=== PATIENT | female | born 1980 | race Caucasian/White ===

== ENCOUNTER 2020-01-02 00:15 | Observation (INO) | payer BC, OTHER ==
[2020-01-02] MEDS ORDERED: Sodium Chloride 0.9% 1000 ML 1,000 ML IV STA ×2 (00:32→01:40)
[2020-01-02] MEDS ORDERED: Phenergan 25 MG INJ IM ONE (00:32)
--- NOTE | 2020-01-02 00:50 | ERPHSYRPT ---
- History of Present Illness Time Seen by Provider: 01/02/20 00:45 Historian: patient, family Exam Limitations: no limitations Physician History: pt had acute onset of abd [pain right side and vomiting with diarrhea at 7 pm this evening - no trauma, no prior episodes - has had GB out; no one else at home reported sick; no travels; ate a [employer] supper earlier; abd is tender at the right mid abd prior hx of C dif , but that was years ago , and has hx of some chronic diarrhea unknown cause but neg w/u; Timing/Duration: today Activities at Onset: none Quality: cramping, sharpness, stabbing Abdominal Pain Onset Location: RUQ, RLQ Pain Radiation: RUQ, RLQ Severity of Pain-Max: moderate Severity of Pain-Current: moderate Associated Symptoms: diarrhea, nausea, vomiting Previous symptoms: no prior history Allergies/Adverse Reactions: cisatracurium besylate [From Nimbex] Allergy (Verified 01/02/20 05:28) ondansetron HCl [From Zofran (as hydrochloride)] Allergy (Verified 01/02/20 05: 28) prochlorperazine edisylate [From Compazine] Allergy (Verified 01/02/20 05:28) prochlorperazine maleate [From Compazine] Allergy (Verified 01/02/20 05:28) Sulfa (Sulfonamide Antibiotics) Allergy (Verified 01/02/20 05:28) IV dye Allergy (Uncoded 02/24/15 11:36) Home Medications: Budesonide [Pulmicort] 1 puff IH BID 02/24/15 [History] Metoprolol Succinate 50 mg [Toprol Xl 50 MG] 50 mg PO DAILY 02/24/15 [ History] Cholecalciferol (Vitamin D3) [Vitamin D3] 5,000 unit PO DAILY 01/02/20 [History] Cranberry Conc/C/Bacill Coag [Azo Cranberry Tablet] 2 each PO DAILY 01/02/20 [ History] Dexlansoprazole [Dexilant] 60 mg PO DAILY 01/02/20 [History] Famotidine 20 mg [Pepcid 20 MG] 20 mg PO DAILY 01/02/20 [History] Metoprolol Succinate 25 mg PO HS 01/02/20 [History] Multivitamin [Multivitamins] 1 each PO DAILY 01/02/20 [History] Saccharomyces Boulardii [Florastor] 250 mg PO BID 01/02/20 [History] Hx Tetanus, Diphtheria Vaccination/Date Given: No Hx Influenza Vaccination/Date Given: Yes - Review of Systems Constitutional: No Fever, No Chills Eyes: No Symptoms Ears, Nose, & Throat: No Symptoms Respiratory: No Cough, No Dyspnea Cardiac: No Chest Pain, No Edema, No Syncope Abdominal/Gastrointestinal: Abdominal Pain, Nausea, Vomiting, Diarrhea Genitourinary Symptoms: No Dysuria Musculoskeletal: No Back Pain, No Neck Pain Skin: No Rash Neurological: No Dizziness, No Focal Weakness, No Sensory Changes Psychological: No Symptoms Endocrine: No Symptoms All Other Systems: Reviewed and Negative - Past Medical History Pertinent Past Medical History: Yes Neurological History: No Pertinent History ENT History: No Pertinent History Cardiac History: Other Respiratory History: Asthma Endocrine Medical History: Hypoglycemia Musculoskeletal History: No Pertinent History GI Medical History: No Pertinent History History: Other Psycho-Social History: No Pertinent History Female Reproductive Disorders: Endometriosis Other Medical History: heart palpitations, hormonal imbalance. - Past Surgical History Past Surgical History: Yes Neuro Surgical History: No Pertinent History Cardiac: No Pertinent History Respiratory: No Pertinent History Gastrointestinal: Cholecystectomy Musculoskeletal: Other Female Surgical History: Section Other Surgical History: scopes x2-endometriosis - Social History Smoking Status: Never smoker Exposure to second hand smoke: No Drug Use: none Patient Lives Alone: No - Female History Hx Now: (hcg pending) - Nursing Vital Signs Nursing Vital Signs: Initial Vital Signs Temperature 97.8 F 01/02/20 00:36 Pulse Rate 104 H 01/02/20 00:36 Respiratory Rate 16 01/02/20 00:36 Blood Pressure 146/92 01/02/20 00:36 O2 Sat by Pulse Oximetry 104 H 01/02/20 00:36 Pain Scale Pain Intensity 2 - Physical Exam General Appearance: no apparent distress, alert Eye Exam: PERRL/EOMI, eyes nml inspection Ears, Nose, Throat Exam: normal ENT inspection, pharynx normal, moist mucous membranes Neck Exam: normal inspection, non-tender, supple, full range of motion Respiratory Exam: normal breath sounds, lungs clear, No respiratory distress Cardiovascular Exam: regular rate/rhythm, normal heart sounds Gastrointestinal/Abdomen Exam: soft, tenderness, No mass Pelvic Exam: deferred Rectal Exam: deferred Back Exam: normal inspection, normal range of motion, No CVA tenderness, No vertebral tenderness Extremity Exam: normal inspection, normal range of motion, pelvis stable Neurologic Exam: alert, oriented x 3, cooperative, normal mood/affect, nml cerebellar function, sensation nml, No motor deficits Skin Exam: normal color, warm, dry - Course Nursing assessment & vital signs reviewed: Yes - CT Exams Abdomen/Pelvis CT Interpretation: Tele-radiologist Report, No appendicitis, Other (air fluid levels throughout - no distension or obstruction point noted) Ordered Tests: Active Orders 24 hr Category Date Time Status IV Insertion STAT Care 01/02/20 00:32 Active Pulse Oximetry (ED) STAT Care 01/02/20 00:41 Completed ABDOMEN AND PELVIS W/0 CONTRAS [CT] Stat Exams 01/02/20 00:44 Ordered AMYLASE Stat Lab 01/02/20 01:00 Completed CBC W DIFF Stat Lab 01/02/20 01:00 Completed CMP Stat Lab 01/02/20 01:00 Completed CULTURE,URINE Stat Lab 01/02/20 00:59 Received HCG QUALITATIVE,SERUM Stat Lab 01/02/20 01:00 Completed LIPASE Stat Lab 01/02/20 01:00 Completed Lactic Acid Stat Lab 01/02/20 01:00 Completed UA W/RFX UR CULTURE Stat Lab 01/02/20 00:59 Completed Medication Summary Generic Name Dose Route Start Last Admin Trade Name Freq PRN Reason Stop Dose Admin Acetaminophen 650 mg 01/02/20 05:30 Feverall 650 Mg LA 02/01/20 05:29 Q4H PRN PRN temp greater than 101 Famotidine 20 mg 01/02/20 17:00 Pepcid 20 Mg Vial IV 02/01/20 16:59 Q12H JOSIAH Hydromorphone HCl 0.5 mg 01/02/20 05:26 Dilaudid 2 Mg Injection IV 01/07/20 05:25 Q3H PRN PRN PAIN Lactated Ringer's 1,000 mls @ 200 mls/hr 01/02/20 05:30 Lactated Ringers IV 02/01/20 05:29 .Q5H JOSIAH Promethazine HCl 50 mg 01/02/20 05:28 Phenergan 25 Mg Inj IM 02/01/20 05:27 Q4H PRN PRN NAUSEA Discontinued Medications Generic Name Dose Route Start Last Admin Trade Name Freq PRN Reason Stop Dose Admin Hydromorphone HCl Confirm 01/02/20 03:18 Hydromorphone 1 Mg/Ml Ampule Administered 01/02/20 03:19 Dose 1 mg .ROUTE .STK-MED ONE Sodium Chloride 1,000 mls @ 999 mls/hr 01/02/20 00:32 01/02/20 01:06 Sodium Chloride 0.9% 1000 Ml IV 01/02/20 01:32 999 mls/hr .Q1H1M STA Administration Sodium Chloride Confirm 01/02/20 01:00 Sodium Chloride 0.9% 1000 Ml Administered 01/02/20 01:01 Dose 1,000 mls @ ud .ROUTE .STK-MED ONE Potassium Chloride 20 meq in 100 mls @ 50 mls/hr 01/02/20 01:34 01/02/20 01: 39 Potassium Chloride 20 Meq In Water 100ml IV 01/02/20 03:33 50 mls/hr STAT ONE Administration Potassium Chloride Confirm 01/02/20 01:37 Potassium Chloride 20 Meq In Water 100ml Administered 01/02/20 01:38 Dose 100 mls @ ud IV .STK-MED ONE Sodium Chloride 1,000 mls @ 999 mls/hr 01/02/20 01:40 Sodium Chloride 0.9% 1000 Ml IV 01/02/20 02:40 .Q1H1M STA Sodium Chloride Confirm 01/02/20 02:22 Sodium Chloride 0.9% 1000 Ml Administered 01/02/20 02:23 Dose 1,000 mls @ ud .ROUTE .STK-MED ONE Potassium Bicarbonate 25 meq 01/02/20 01:34 01/02/20 05:19 K-Lyte 25 Meq PO 01/02/20 01:35 Not Given STAT ONE Potassium Bicarbonate Confirm 01/02/20 01:37 K-Lyte 25 Meq Administered 01/02/20 01:38 Dose 25 meq .ROUTE .STK-MED ONE Promethazine HCl 50 mg 01/02/20 00:32 01/02/20 01:06 Phenergan 25 Mg Inj IM 01/02/20 00:33 50 mg STAT ONE Administration Promethazine HCl Confirm 01/02/20 01:00 Phenergan 25 Mg Inj Administered 01/02/20 01:01 Dose 50 mg .ROUTE .STK-MED ONE Lab/Rad Data: Laboratory Result Diagrams 01/02/20 01:00 01/02/20 01:00 Laboratory Results 01/02/20 01/02/20 01/02/20 Range/Units 01:00 01:00 01:00 WBC (4.0-10.5) K/mm3 RBC (4.1-5.4) M/mm3 Hgb (12.0-16.0) gm/dl Hct (35-47) % MCV (78-100) fl MCH (26-32) pg MCHC (32-36) g/dl RDW (11.5-14.0) % Plt Count (150-450) K/mm3 MPV (7.5-11.0) fl Gran % (36.0-66.0) % Eos # (Auto) (0-0.5) Absolute Lymphs (auto) (1.0-4.6) Absolute Monos (auto) (0.0-1.3) Lymphocytes % (24.0-44.0) % Monocytes % (0.0-12.0) % Eosinophils % (0.00-5.0) % Basophils % (0.0-0.4) % Absolute Granulocytes (1.4-6.9) Basophils # (0-0.4) Sodium 138 (137-145) mmol/L Potassium 3.2 L (3.5-5.1) mmol/L Chloride 105 (98-107) mmol/L Carbon Dioxide 25 (22-30) mmol/L Anion Gap 11.1 (5-15) MEQ/L BUN 21 H (7-17) mg/dL Creatinine 0.61 (0.52-1.04) mg/dL Estimated GFR > 60.0 ML/MIN Glucose 124 H (74-106) mg/dL Lactic Acid (0.4-2.0) Calcium 9.5 (8.4-10.2) mg/dL Total Bilirubin 0.70 (0.2-1.3) mg/dL AST 117 H (14-36) U/L ALT 85 H (0-35) U/L Alkaline Phosphatase 54 (38-126) U/L Serum Total Protein 7.8 (6.3-8.2) g/dL Albumin 4.6 (3.5-5.0) g/dL Amylase 74 (30-110) U/L Lipase 177 (23-300) U/L Serum , Qual NEGATIVE (Negative) Urine Color (YELLOW) Urine Appearance (CLEAR) Urine pH (5-6) Ur Specific [place] (1.005-1.025) Urine Protein (Negative) Urine Ketones (NEGATIVE) Urine Blood (0-5) Jaime/ul Urine Nitrite (NEGATIVE) Urine Bilirubin (NEGATIVE) Urine Urobilinogen (0-1) mg/dL Ur Leukocyte Esterase (NEGATIVE) Urine WBC (Auto) (0-5) /HPF Urine RBC (Auto) (0-2) /HPF U Epithel Cells (Auto) (FEW) /HPF Urine Bacteria (Auto) (NEGATIVE) /HPF Urine Mucus (Auto) (NEGATIVE) /HPF Urine Culture Reflexed (NO) Urine Glucose (NEGATIVE) mg/dL Influenza Type A Ag NEGATIVE (NEGATIVE) Influenza Type B Ag NEGATIVE (NEGATIVE) RSV (PCR) NEGATIVE (Negative) 01/02/20 01/02/20 01/02/20 Range/Units 01:00 01:00 00:59 WBC 18.5 H (4.0-10.5) K/mm3 RBC 4.46 (4.1-5.4) M/mm3 Hgb 14.4 (12.0-16.0) gm/dl Hct 43.1 (35-47) % MCV 96.6 (78-100) fl MCH 32.3 H (26-32) pg MCHC 33.4 (32-36) g/dl RDW 13.2 (11.5-14.0) % Plt Count 246 (150-450) K/mm3 MPV 9.4 (7.5-11.0) fl Gran % 88.6 H (36.0-66.0) % Eos # (Auto) 0.06 (0-0.5) Absolute Lymphs (auto) 0.93 L (1.0-4.6) Absolute Monos (auto) 1.09 (0.0-1.3) Lymphocytes % 5.0 L (24.0-44.0) % Monocytes % 5.9 (0.0-12.0) % Eosinophils % 0.3 (0.00-5.0) % Basophils % 0.2 (0.0-0.4) % Absolute Granulocytes 16.40 H (1.4-6.9) Basophils # 0.03 (0-0.4) Sodium (137-145) mmol/L Potassium (3.5-5.1) mmol/L Chloride (98-107) mmol/L Carbon Dioxide (22-30) mmol/L Anion Gap (5-15) MEQ/L BUN (7-17) mg/dL Creatinine (0.52-1.04) mg/dL Estimated GFR ML/MIN Glucose (74-106) mg/dL Lactic Acid 2.2 H (0.4-2.0) Calcium (8.4-10.2) mg/dL Total Bilirubin (0.2-1.3) mg/dL AST (14-36) U/L ALT (0-35) U/L Alkaline Phosphatase (38-126) U/L Serum Total Protein (6.3-8.2) g/dL Albumin (3.5-5.0) g/dL Amylase (30-110) U/L Lipase (23-300) U/L Serum , Qual (Negative) Urine Color [place] (YELLOW) Urine Appearance SLIGHTLY CLOUDY (CLEAR) Urine pH 5.0 (5-6) Ur Specific [place] 1.024 (1.005-1.025) Urine Protein 30 (Negative) Urine Ketones NEGATIVE (NEGATIVE) Urine Blood NEGATIVE (0-5) Jaime/ul Urine Nitrite NEGATIVE (NEGATIVE) Urine Bilirubin NEGATIVE (NEGATIVE) Urine Urobilinogen NEGATIVE (0-1) mg/dL Ur Leukocyte Esterase TRACE (NEGATIVE) Urine WBC (Auto) 3-5 (0-5) /HPF Urine RBC (Auto) 6-10 (0-2) /HPF U Epithel Cells (Auto) RARE (FEW) /HPF Urine Bacteria (Auto) NONE (NEGATIVE) /HPF Urine Mucus (Auto) MODERATE (NEGATIVE) /HPF Urine Culture Reflexed YES (NO) Urine Glucose NEGATIVE (NEGATIVE) mg/dL Influenza Type A Ag (NEGATIVE) Influenza Type B Ag (NEGATIVE) RSV (PCR) (Negative) - Progress Progress: improved, re-examined Progress Note: 01/02/20 05:42 discussed with pt / family and Dr Nito sal covering and all agree best to place the pt in on obs for rehydration latter-day of K and control of vomiting ; Discussed with : Moises Will see patient in: hospital (observation) Counseled pt/family regarding: lab results, diagnosis, need for follow-up, rad results - Departure Departure Disposition: Observation Clinical Impression: Abdominal pain, vomiting, and diarrhea, Hypokalemia, elevated liver function, Hematuria Condition: Good Critical Care Time: No
[2020-01-02 01:00] LABS: BASOPHIL % 0.2 % (0.0-0.4); Basophil (Absolute #) 0.03 (0-0.4); Eosinophil % 0.3 % (0.00-5.0); Eosinophil (Absolute #) 0.06 (0-0.5); Hematocrit 43.1 % (35-47); Hemoglobin 14.4 gm/dl (12.0-16.0); Lymphocyte (Absolute #) 0.93 (1.0-4.6); Mean Cell Volume 96.6 fl (78-100); Mean Corpuscular Hemoglobin 32.3 pg (26-32); Mean Corpuscular Hgb Concent. 33.4 g/dl (32-36); Mean Platelet Volume 9.4 fl (7.5-11.0); Monocyte (Absolute #) 1.09 (0.0-1.3); Monocytes % 5.9 % (0.0-12.0); Neutrophil % 88.6 % (36.0-66.0); Platelet Count 246 K/mm3 (150-450); Red Blood Count 4.46 M/mm3 (4.1-5.4); Red Cell Distribution Width 13.2 % (11.5-14.0); White Blood Count 18.5 K/mm3 (4.0-10.5)
[2020-01-02] MEDS ORDERED: Sodium Chloride 0.9% 1000 ML 1,000 ML ONE ×2 (01:00→02:22)
[2020-01-02] MEDS ORDERED: Phenergan 25 MG INJ ONE (01:00)
[2020-01-02 01:14] LABS: ALBUMIN 4.6 g/dL (3.5-5.0); ALKALINE PHOSPHATASE 54 U/L (38-126); AMYLASE 74 U/L (30-110); ANION GAP 11.1 MEQ/L (5-15); BLOOD UREA NITROGEN 21 mg/dL (7-17); CHLORIDE 105 mmol/L (98-107); Calcium 9.5 mg/dL (8.4-10.2); Carbon Dioxide 25 mmol/L (22-30); Creatinine 1 0.61 mg/dL (0.52-1.04); Glucose 124 mg/dL (74-106); LIPASE 177 U/L (23-300); Potassium 3.2 mmol/L (3.5-5.1); SGOT/AST 117 U/L (14-36); SGPT/ALT 85 U/L (0-35); SODIUM 138 mmol/L (137-145); Total Protein 7.8 g/dL (6.3-8.2)
[2020-01-02 01:34] LABS: Appearance SLIGHTLY CLOUDY (CLEAR); Bilirubin NEGATIVE (NEGATIVE); Blood NEGATIVE Ery/ul (0-5); Epithelial Cells RARE /HPF (FEW); Glucose NEGATIVE (NEGATIVE); Ketones NEGATIVE (NEGATIVE); Leukocyte Esterase TRACE (NEGATIVE); Mucus MODERATE /HPF (NEGATIVE); Nitrite NEGATIVE (NEGATIVE); Protein,Urine Dip 30 (Negative); Specific Gravity 1.024 (1.005-1.025); Urobilinogen NEGATIVE mg/dL (0-1)
[2020-01-02] MEDS ORDERED: POTASSIUM CHLORIDE 20 mEq IN WATER 100ML 20 MEQ/100 ML BAG IV ONE (01:34)
[2020-01-02] MEDS ORDERED: POTASSIUM CHLORIDE 20 mEq IN WATER 100ML 100 ML IV ONE (01:37)
[2020-01-02] MEDS ORDERED: K-LYTE 25 MEQ ONE (01:37)
[2020-01-02] MEDS: K-LYTE 25 MEQ PO ONE ×2 (01:39→05:19)
[2020-01-02 01:43] LABS: INFLUENZA A NEGATIVE (NEGATIVE); INFLUENZA B NEGATIVE (NEGATIVE); RESPIRATORY SYNCTIAL VIRUS NEGATIVE (Negative)
[2020-01-02] MEDS ORDERED: Hydromorphone 1 mg/ml Ampule ONE (03:18)
[2020-01-02] MEDS ORDERED: FEVERALL 650 MG PR PRN (05:30)
[2020-01-02] MEDS ORDERED: Pepcid 20 MG VIAL IV ONE (05:30)
[2020-01-02] MEDS ORDERED: Pepcid 20 MG VIAL IV SCH ×3 (07:00→22:00)
[2020-01-02 08:25] LABS: Appearance CLEAR (CLEAR); Bilirubin NEGATIVE (NEGATIVE); Blood NEGATIVE Ery/ul (0-5); Epithelial Cells RARE /HPF (FEW); Glucose NEGATIVE (NEGATIVE); Ketones NEGATIVE (NEGATIVE); Leukocyte Esterase NEGATIVE (NEGATIVE); Mucus SLIGHT /HPF (NEGATIVE); Nitrite NEGATIVE (NEGATIVE); Protein,Urine Dip NEGATIVE (Negative); RBC 0-2 /HPF (0-2); Specific Gravity 1.018 (1.005-1.025); Urobilinogen NEGATIVE mg/dL (0-1); WBC 0-2 /HPF (0-5)
[2020-01-02 08:57] LABS: Bacteria RARE /HPF (NEGATIVE)
[2020-01-02] MEDS: Lactated Ringers 1,000 ML IV SCH ×3 (09:35→19:45)
[2020-01-02] MEDS: Phenergan 25 MG INJ IM PRN ×3 (09:36→23:38)
--- NOTE | 2020-01-02 09:43 | XRAY ---
Indication: Midabdomen pain, nausea, vomiting, diarrhea. Multiple contiguous axial images obtained through the abdomen and pelvis without contrast as ordered. Comparison: July 27, 2014. Lung bases are clear. Heart is not enlarged. Noncontrasted stomach and bowel loops appear nonobstructed. Small bowel loops and colon are now mildly fluid distended throughout with minimal small bowel wall thickening, ileus versus enterocolitis. Appendix not seen. No free fluid/air. Again previous cholecystectomy. Remaining liver, pancreas, spleen, adrenal glands, kidneys, ureters, bladder, uterus, and aorta appear unremarkable for noncontrast exam. Osseous structures intact. No ventral or inguinal hernias. Impression: New fluid distended small bowel loops and colon with small bowel wall thickening, ileus versus enterocolitis. Comment: Preliminary interpretation was made by [facility]. No critical discrepancy.
[2020-01-02 10:09] LABS: 027 TOX PROD PRESUMPTIVE NEGATIVE (NEGATIVE); TOXIGENIC C. DIFF ORG NEGATIVE (NEGATIVE)
[2020-01-02 10:14] LABS: ALBUMIN 3.4 g/dL (3.5-5.0); ALKALINE PHOSPHATASE 38 U/L (38-126); ANION GAP 8.6 MEQ/L (5-15); BLOOD UREA NITROGEN 15 mg/dL (7-17); CHLORIDE 107 mmol/L (98-107); Calcium 7.8 mg/dL (8.4-10.2); Carbon Dioxide 24 mmol/L (22-30); Creatinine 1 0.45 mg/dL (0.52-1.04); Glucose 105 mg/dL (74-106); Potassium 3.5 mmol/L (3.5-5.1); SGOT/AST 101 U/L (14-36); SGPT/ALT 124 U/L (0-35); SODIUM 137 mmol/L (137-145)
[2020-01-02 10:17] LABS: Absolute Neutrophil Ct (ANC) 11.78 (1.4-6.9); BASOPHIL % 0.1 % (0.0-0.4); Basophil (Absolute #) 0.01 (0-0.4); Eosinophil (Absolute #) 0 (0-0.5); Hematocrit 36.5 % (35-47); Lymphocyte (Absolute #) 0.29 (1.0-4.6); Lymphocytes % 2.3 % (24.0-44.0); Mean Cell Volume 98.1 fl (78-100); Mean Corpuscular Hemoglobin 32.3 pg (26-32); Mean Corpuscular Hgb Concent. 32.9 g/dl (32-36); Mean Platelet Volume 8.7 fl (7.5-11.0); Monocyte (Absolute #) 0.52 (0.0-1.3); Monocytes % 4.1 % (0.0-12.0); Neutrophil % 93.5 % (36.0-66.0); Platelet Count 251 K/mm3 (150-450); Red Blood Count 3.72 M/mm3 (4.1-5.4); Red Cell Distribution Width 13.3 % (11.5-14.0); White Blood Count 12.6 K/mm3 (4.0-10.5)
--- NOTE | 2020-01-02 12:12 | PCM.HP ---
History of Present Illness - Chief Complaint Chief Complaint: Intractable Vomiting for 1 days History of Present Illness: is a 39 year old female.pt had acute onset of abd [pain right side and vomiting with diarrhea at 7 pm this evening - no trauma, no prior episodes - has had GB out; no one else at home reported sick; no travels; ate a amish supper earlier; abd is tender at the right mid abd prior hx of C dif , but that was years ago , and has hx of some chronic diarrhea unknown cause but neg w/u; Timing/Duration: today Activities at Onset: none Quality: cramping, sharpness, stabbing Abdominal Pain Onset Location: RUQ, RLQ Pain Radiation: RUQ, RLQ Severity of Pain-Max: moderate Severity of Pain-Current: moderate Associated Symptoms: diarrhea, nausea, vomiting Previous symptoms: no prior history - Review of Systems Constitutional: No Fever, No Chills Eyes: No Symptoms Ears, Nose, & Throat: No Symptoms Respiratory: No Cough, No Short Of Breath Cardiac: No Chest Pain, No Edema, No Syncope Abdominal/Gastrointestinal: No Abdominal Pain, No Nausea, No Vomiting, No Diarrhea Genitourinary Symptoms: No Dysuria Musculoskeletal: No Back Pain, No Neck Pain Skin: No Rash Neurological: No Dizziness, No Focal Weakness, No Sensory Changes Psychological: No Symptoms Endocrine: No Symptoms Hematologic/Lymphatic: No Symptoms Immunological/Allergic: No Symptoms Medications & Allergies Home Medications: Home Medication List Budesonide [Pulmicort] 1 puff IH BID 02/24/15 [History Confirmed 01/02/20] Metoprolol Succinate 50 mg [Toprol Xl 50 MG] 50 mg PO DAILY 02/24/15 [ History Confirmed 01/02/20] Cholecalciferol (Vitamin D3) [Vitamin D3] 5,000 unit PO DAILY 01/02/20 [History Confirmed 01/02/20] Cranberry Conc/C/Bacill Coag [Azo Cranberry Tablet] 2 each PO DAILY 01/02/20 [ History Confirmed 01/02/20] Dexlansoprazole [Dexilant] 60 mg PO DAILY 01/02/20 [History Confirmed 01/02/20] Famotidine 20 mg [Pepcid 20 MG] 20 mg PO DAILY 01/02/20 [History Confirmed 01/02/20] Metoprolol Succinate 25 mg PO HS 01/02/20 [History Confirmed 01/02/20] Multivitamin [Multivitamins] 1 each PO DAILY 01/02/20 [History Confirmed ] Saccharomyces Boulardii [Florastor] 250 mg PO BID 01/02/20 [History Confirmed ] Allergies/Adverse Reactions: Allergies Allergy/AdvReac Type Severity Reaction Status Date / Time cisatracurium besylate Allergy Verified 01/02/20 05:28 [From Nimbex] ondansetron HCl Allergy Verified 01/02/20 05:28 [From Zofran (as hydrochloride)] prochlorperazine edisylate Allergy Verified 01/02/20 05:28 [From Compazine] prochlorperazine maleate Allergy Verified 01/02/20 05:28 [From Compazine] Sulfa (Sulfonamide Allergy Verified 01/02/20 05:28 Antibiotics) IV dye Allergy Uncoded 02/24/15 11:36 - Past Medical History Past Medical History: Yes Neurological History: No Pertinent History ENT History: No Pertinent History Cardiac History: Other Respiratory History: Asthma Endocrine Medical History: Hypoglycemia Musculoskelatal History: No Pertinent History GI Medical History: No Pertinent History History: Other Pyscho-Social History: No Pertinent History Reproductive Disorders: Endometriosis Comment: heart palpitations, hormonal imbalance. - Female History Are you now?: (hcg pending) - Past Surgical History Past Surgical History: Yes Neuro Surgical History: No Pertinent History Cardiac History: No Pertinent History Respiratory Surgery: No Pertinent History GI Surgical History: Cholecystectomy Musculskeletal Surgical Hx: Other Female Surgical History: Section Other Surgical History: scopes x2-endometriosis - Social History Smoking Status: Never smoker Exposure to second hand smoke: No Alcohol: None Drug Use: none - Physical Exam Vital Signs: Vital Signs - 24 hr Temp Pulse Resp BP Pulse Ox 01/02/20 11:39 98.3 F 97 H 16 102/54 96 01/02/20 08:00 98.4 F 95 H 16 109/55 97 01/02/20 05:13 98.1 F 105 H 18 99/59 97 01/02/20 01:32 98 H 16 115/77 100 01/02/20 01:07 105 H 105/64 100 01/02/20 00:54 98 01/02/20 00:36 97.8 F 104 H 16 146/92 104 H General Appearance: no apparent distress, alert Neurologic Exam: alert, oriented x 3, cooperative, normal mood/affect, nml cerebellar function, nml station & gait, sensation nml, No motor deficits Eye Exam: PERRL/EOMI, eyes nml inspection Ears, Nose, Throat Exam: normal ENT inspection, TMs normal, pharynx normal, moist mucous membranes Neck Exam: normal inspection, non-tender, supple, full range of motion Respiratory Exam: normal breath sounds, lungs clear, No respiratory distress Cardiovascular Exam: regular rate/rhythm, normal heart sounds, normal peripheral pulses Gastrointestinal/Abdomen Exam: soft, normal bowel sounds, No tenderness, No mass Back Exam: normal inspection, normal range of motion, No CVA tenderness, No vertebral tenderness Extremity Exam: normal inspection, normal range of motion, pelvis stable Skin Exam: normal color, warm, dry, No rash Lymphatic Exam: No adenopathy Results - Labs Lab/Micro Results: Lab Results-Last 24 Hours 01/02/20 01/02/20 01/02/20 Range/Units 00:59 01:00 01:00 WBC 18.5 H (4.0-10.5) K/mm3 RBC 4.46 (4.1-5.4) M/mm3 Hgb 14.4 (12.0-16.0) gm/dl Hct 43.1 (35-47) % MCV 96.6 (78-100) fl MCH 32.3 H (26-32) pg MCHC 33.4 (32-36) g/dl RDW 13.2 (11.5-14.0) % Plt Count 246 (150-450) K/mm3 MPV 9.4 (7.5-11.0) fl Gran % 88.6 H (36.0-66.0) % Eos # (Auto) 0.06 (0-0.5) Absolute Lymphs (auto) 0.93 L (1.0-4.6) Absolute Monos (auto) 1.09 (0.0-1.3) Lymphocytes % 5.0 L (24.0-44.0) % Monocytes % 5.9 (0.0-12.0) % Eosinophils % 0.3 (0.00-5.0) % Basophils % 0.2 (0.0-0.4) % Absolute Granulocytes 16.40 H (1.4-6.9) Basophils # 0.03 (0-0.4) Sodium (137-145) mmol/L Potassium (3.5-5.1) mmol/L Chloride (98-107) mmol/L Carbon Dioxide (22-30) mmol/L Anion Gap (5-15) MEQ/L BUN (7-17) mg/dL Creatinine (0.52-1.04) mg/dL Estimated GFR ML/MIN Glucose (74-106) mg/dL Lactic Acid 2.2 H (0.4-2.0) Calcium (8.4-10.2) mg/dL Total Bilirubin (0.2-1.3) mg/dL AST (14-36) U/L ALT (0-35) U/L Alkaline Phosphatase (38-126) U/L Serum Total Protein (6.3-8.2) g/dL Albumin (3.5-5.0) g/dL Amylase (30-110) U/L Lipase (23-300) U/L Serum , Qual (Negative) Urine Color [place] (YELLOW) Urine Appearance SLIGHTLY CLOUDY (CLEAR) Urine pH 5.0 (5-6) Ur Specific [place] 1.024 (1.005-1.025) Urine Protein 30 (Negative) Urine Ketones NEGATIVE (NEGATIVE) Urine Blood NEGATIVE (0-5) Jaime/ul Urine Nitrite NEGATIVE (NEGATIVE) Urine Bilirubin NEGATIVE (NEGATIVE) Urine Urobilinogen NEGATIVE (0-1) mg/dL Ur Leukocyte Esterase TRACE (NEGATIVE) Urine WBC (Auto) 3-5 (0-5) /HPF Urine RBC (Auto) 6-10 (0-2) /HPF U Epithel Cells (Auto) RARE (FEW) /HPF Urine Bacteria (Auto) NONE (NEGATIVE) /HPF Urine Mucus (Auto) MODERATE (NEGATIVE) /HPF Urine Culture Reflexed YES (NO) Urine Glucose NEGATIVE (NEGATIVE) mg/dL C. difficile Screen (NEGATIVE) C.difficile 027-NAP1-B1 (NEGATIVE) Influenza Type A Ag (NEGATIVE) Influenza Type B Ag (NEGATIVE) RSV (PCR) (Negative) 01/02/20 01/02/20 01/02/20 Range/Units 01:00 01:00 01:00 WBC (4.0-10.5) K/mm3 RBC (4.1-5.4) M/mm3 Hgb (12.0-16.0) gm/dl Hct (35-47) % MCV (78-100) fl MCH (26-32) pg MCHC (32-36) g/dl RDW (11.5-14.0) % Plt Count (150-450) K/mm3 MPV (7.5-11.0) fl Gran % (36.0-66.0) % Eos # (Auto) (0-0.5) Absolute Lymphs (auto) (1.0-4.6) Absolute Monos (auto) (0.0-1.3) Lymphocytes % (24.0-44.0) % Monocytes % (0.0-12.0) % Eosinophils % (0.00-5.0) % Basophils % (0.0-0.4) % Absolute Granulocytes (1.4-6.9) Basophils # (0-0.4) Sodium 138 (137-145) mmol/L Potassium 3.2 L (3.5-5.1) mmol/L Chloride 105 (98-107) mmol/L Carbon Dioxide 25 (22-30) mmol/L Anion Gap 11.1 (5-15) MEQ/L BUN 21 H (7-17) mg/dL Creatinine 0.61 (0.52-1.04) mg/dL Estimated GFR > 60.0 ML/MIN Glucose 124 H (74-106) mg/dL Lactic Acid (0.4-2.0) Calcium 9.5 (8.4-10.2) mg/dL Total Bilirubin 0.70 (0.2-1.3) mg/dL AST 117 H (14-36) U/L ALT 85 H (0-35) U/L Alkaline Phosphatase 54 (38-126) U/L Serum Total Protein 7.8 (6.3-8.2) g/dL Albumin 4.6 (3.5-5.0) g/dL Amylase 74 (30-110) U/L Lipase 177 (23-300) U/L Serum , Qual NEGATIVE (Negative) Urine Color (YELLOW) Urine Appearance (CLEAR) Urine pH (5-6) Ur Specific [place] (1.005-1.025) Urine Protein (Negative) Urine Ketones (NEGATIVE) Urine Blood (0-5) Jaime/ul Urine Nitrite (NEGATIVE) Urine Bilirubin (NEGATIVE) Urine Urobilinogen (0-1) mg/dL Ur Leukocyte Esterase (NEGATIVE) Urine WBC (Auto) (0-5) /HPF Urine RBC (Auto) (0-2) /HPF U Epithel Cells (Auto) (FEW) /HPF Urine Bacteria (Auto) (NEGATIVE) /HPF Urine Mucus (Auto) (NEGATIVE) /HPF Urine Culture Reflexed (NO) Urine Glucose (NEGATIVE) mg/dL C. difficile Screen (NEGATIVE) C.difficile 027-NAP1-B1 (NEGATIVE) Influenza Type A Ag NEGATIVE (NEGATIVE) Influenza Type B Ag NEGATIVE (NEGATIVE) RSV (PCR) NEGATIVE (Negative) 01/02/20 01/02/20 01/02/20 Range/Units 04:50 07:50 07:50 WBC (4.0-10.5) K/mm3 RBC (4.1-5.4) M/mm3 Hgb (12.0-16.0) gm/dl Hct (35-47) % MCV (78-100) fl MCH (26-32) pg MCHC (32-36) g/dl RDW (11.5-14.0) % Plt Count (150-450) K/mm3 MPV (7.5-11.0) fl Gran % (36.0-66.0) % Eos # (Auto) (0-0.5) Absolute Lymphs (auto) (1.0-4.6) Absolute Monos (auto) (0.0-1.3) Lymphocytes % (24.0-44.0) % Monocytes % (0.0-12.0) % Eosinophils % (0.00-5.0) % Basophils % (0.0-0.4) % Absolute Granulocytes (1.4-6.9) Basophils # (0-0.4) Sodium (137-145) mmol/L Potassium (3.5-5.1) mmol/L Chloride (98-107) mmol/L Carbon Dioxide (22-30) mmol/L Anion Gap (5-15) MEQ/L BUN (7-17) mg/dL Creatinine (0.52-1.04) mg/dL Estimated GFR ML/MIN Glucose (74-106) mg/dL Lactic Acid 1.6 (0.4-2.0) Calcium (8.4-10.2) mg/dL Total Bilirubin (0.2-1.3) mg/dL AST (14-36) U/L ALT (0-35) U/L Alkaline Phosphatase (38-126) U/L Serum Total Protein (6.3-8.2) g/dL Albumin (3.5-5.0) g/dL Amylase (30-110) U/L Lipase (23-300) U/L Serum , Qual (Negative) Urine Color YELLOW (YELLOW) Urine Appearance CLEAR (CLEAR) Urine pH 7.0 (5-6) Ur Specific [place] 1.018 (1.005-1.025) Urine Protein NEGATIVE (Negative) Urine Ketones NEGATIVE (NEGATIVE) Urine Blood NEGATIVE (0-5) Jaime/ul Urine Nitrite NEGATIVE (NEGATIVE) Urine Bilirubin NEGATIVE (NEGATIVE) Urine Urobilinogen NEGATIVE (0-1) mg/dL Ur Leukocyte Esterase NEGATIVE (NEGATIVE) Urine WBC (Auto) 0-2 (0-5) /HPF Urine RBC (Auto) 0-2 (0-2) /HPF U Epithel Cells (Auto) RARE (FEW) /HPF Urine Bacteria (Auto) RARE (NEGATIVE) /HPF Urine Mucus (Auto) SLIGHT (NEGATIVE) /HPF Urine Culture Reflexed NO (NO) Urine Glucose NEGATIVE (NEGATIVE) mg/dL C. difficile Screen NEGATIVE (NEGATIVE) C.difficile 027-NAP1-B1 PRESUMPTIVE NEGATIVE (NEGATIVE) Influenza Type A Ag (NEGATIVE) Influenza Type B Ag (NEGATIVE) RSV (PCR) (Negative) 01/02/20 01/02/20 Range/Units 10:00 10:00 WBC 12.6 H (4.0-10.5) K/mm3 RBC 3.72 L (4.1-5.4) M/mm3 Hgb 12.0 (12.0-16.0) gm/dl Hct 36.5 (35-47) % MCV 98.1 (78-100) fl MCH 32.3 H (26-32) pg MCHC 32.9 (32-36) g/dl RDW 13.3 (11.5-14.0) % Plt Count 251 (150-450) K/mm3 MPV 8.7 (7.5-11.0) fl Gran % 93.5 H (36.0-66.0) % Eos # (Auto) 0 (0-0.5) Absolute Lymphs (auto) 0.29 L (1.0-4.6) Absolute Monos (auto) 0.52 (0.0-1.3) Lymphocytes % 2.3 L (24.0-44.0) % Monocytes % 4.1 (0.0-12.0) % Eosinophils % 0.0 (0.00-5.0) % Basophils % 0.1 (0.0-0.4) % Absolute Granulocytes 11.78 H (1.4-6.9) Basophils # 0.01 (0-0.4) Sodium 137 (137-145) mmol/L Potassium 3.5 (3.5-5.1) mmol/L Chloride 107 (98-107) mmol/L Carbon Dioxide 24 (22-30) mmol/L Anion Gap 8.6 (5-15) MEQ/L BUN 15 (7-17) mg/dL Creatinine 0.45 L (0.52-1.04) mg/dL Estimated GFR > 60.0 ML/MIN Glucose 105 (74-106) mg/dL Lactic Acid (0.4-2.0) Calcium 7.8 L D (8.4-10.2) mg/dL Total Bilirubin 0.60 (0.2-1.3) mg/dL AST 101 H (14-36) U/L ALT 124 H (0-35) U/L Alkaline Phosphatase 38 (38-126) U/L Serum Total Protein 6.0 L (6.3-8.2) g/dL Albumin 3.4 L (3.5-5.0) g/dL Amylase (30-110) U/L Lipase (23-300) U/L Serum , Qual (Negative) Urine Color (YELLOW) Urine Appearance (CLEAR) Urine pH (5-6) Ur Specific [place] (1.005-1.025) Urine Protein (Negative) Urine Ketones (NEGATIVE) Urine Blood (0-5) Jaime/ul Urine Nitrite (NEGATIVE) Urine Bilirubin (NEGATIVE) Urine Urobilinogen (0-1) mg/dL Ur Leukocyte Esterase (NEGATIVE) Urine WBC (Auto) (0-5) /HPF Urine RBC (Auto) (0-2) /HPF U Epithel Cells (Auto) (FEW) /HPF Urine Bacteria (Auto) (NEGATIVE) /HPF Urine Mucus (Auto) (NEGATIVE) /HPF Urine Culture Reflexed (NO) Urine Glucose (NEGATIVE) mg/dL C. difficile Screen (NEGATIVE) C.difficile 027-NAP1-B1 (NEGATIVE) Influenza Type A Ag (NEGATIVE) Influenza Type B Ag (NEGATIVE) RSV (PCR) (Negative) - Radiology Impressions Radiology Exams & Impressions: Radiology Procedures Category Date Time Status ABDOMEN AND PELVIS W/0 CONTRAS [CT] Stat Exams 01/02/20 00:44 Completed Assessment/Plan (1) Abdominal pain, vomiting, and diarrhea Current Visit: Yes Status: Acute Assessment & Plan: Last Vital Signs Temp 98.3 F 01/02/20 11:39 Pulse 97 H 01/02/20 11:39 Resp 16 01/02/20 11:39 BP 102/54 01/02/20 11:39 Pulse Ox 96 01/02/20 11:39 Allergies cisatracurium besylate [From Nimbex] Allergy (Verified 01/02/20 05:28) ondansetron HCl [From Zofran (as hydrochloride)] Allergy (Verified 01/02/20 05: 28) prochlorperazine edisylate [From Compazine] Allergy (Verified 01/02/20 05:28) prochlorperazine maleate [From Compazine] Allergy (Verified 01/02/20 05:28) Sulfa (Sulfonamide Antibiotics) Allergy (Verified 01/02/20 05:28) IV dye Allergy (Uncoded 02/24/15 11:36) Active Medications Acetaminophen (Feverall 650 Mg) 650 mg IA Q4H PRN PRN PRN Reason: temp greater than 101 Stop: 02/01/20 05:29 Famotidine (Pepcid 20 Mg Vial) 20 mg IV Q12HT JOSIAH Stop: 02/01/20 21:59 Hydromorphone HCl (Dilaudid 2 Mg Injection) 0.5 mg IV Q3H PRN PRN PRN Reason: PAIN Stop: 01/07/20 05:25 Lactated Ringer's (Lactated Ringers) 1,000 mls @ 200 mls/hr IV .Q5H JOSIAH Stop: 02/01/20 05:29 Last Admin: 01/02/20 09:35 Dose: 200 mls/hr Promethazine HCl (Phenergan 25 Mg Inj) 50 mg IM Q4H PRN PRN PRN Reason: NAUSEA Stop: 02/01/20 05:27 Last Admin: 01/02/20 09:36 Dose: 50 mg Intake & Output 01/02/20 01/03/20 11:59 11:59 Intake Total 0 Output Total 425 Balance -425 Weight 67.6 kg Lab Tests 01/02/20 01/02/20 01/02/20 00:59 01:00 01:00 WBC 18.5 H RBC 4.46 Hgb 14.4 Hct 43.1 MCV 96.6 MCH 32.3 H MCHC 33.4 RDW 13.2 Plt Count 246 MPV 9.4 Gran % 88.6 H Eos # (Auto) 0.06 Absolute Lymphs (auto) 0.93 L Absolute Monos (auto) 1.09 Lymphocytes % 5.0 L Monocytes % 5.9 Eosinophils % 0.3 Basophils % 0.2 Absolute Granulocytes 16.40 H Basophils # 0.03 Sodium Potassium Chloride Carbon Dioxide Anion Gap BUN Creatinine Estimated GFR Glucose Lactic Acid 2.2 H Calcium Total Bilirubin AST ALT Alkaline Phosphatase Serum Total Protein Albumin Amylase Lipase Serum , Qual Urine Color [place] Urine Appearance SLIGHTLY CLOUDY Urine pH 5.0 Ur Specific [place] 1.024 Urine Protein 30 Urine Ketones NEGATIVE Urine Blood NEGATIVE Urine Nitrite NEGATIVE Urine Bilirubin NEGATIVE Urine Urobilinogen NEGATIVE Ur Leukocyte Esterase TRACE Urine WBC (Auto) 3-5 Urine RBC (Auto) 6-10 U Epithel Cells (Auto) RARE Urine Bacteria (Auto) NONE Urine Mucus (Auto) MODERATE Urine Culture Reflexed YES Urine Glucose NEGATIVE C. difficile Screen C.difficile 027-NAP1-B1 Influenza Type A Ag Influenza Type B Ag RSV (PCR) 01/02/20 01/02/20 01/02/20 01:00 01:00 01:00 WBC RBC Hgb Hct MCV MCH MCHC RDW Plt Count MPV Gran % Eos # (Auto) Absolute Lymphs (auto) Absolute Monos (auto) Lymphocytes % Monocytes % Eosinophils % Basophils % Absolute Granulocytes Basophils # Sodium 138 Potassium 3.2 L Chloride 105 Carbon Dioxide 25 Anion Gap 11.1 BUN 21 H Creatinine 0.61 Estimated GFR > 60.0 Glucose 124 H Lactic Acid Calcium 9.5 Total Bilirubin 0.70 AST 117 H ALT 85 H Alkaline Phosphatase 54 Serum Total Protein 7.8 Albumin 4.6 Amylase 74 Lipase 177 Serum , Qual NEGATIVE Urine Color Urine Appearance Urine pH Ur Specific [place] Urine Protein Urine Ketones Urine Blood Urine Nitrite Urine Bilirubin Urine Urobilinogen Ur Leukocyte Esterase Urine WBC (Auto) Urine RBC (Auto) U Epithel Cells (Auto) Urine Bacteria (Auto) Urine Mucus (Auto) Urine Culture Reflexed Urine Glucose C. difficile Screen C.difficile 027-NAP1-B1 Influenza Type A Ag NEGATIVE Influenza Type B Ag NEGATIVE RSV (PCR) NEGATIVE 01/02/20 01/02/20 01/02/20 04:50 07:50 07:50 WBC RBC Hgb Hct MCV MCH MCHC RDW Plt Count MPV Gran % Eos # (Auto) Absolute Lymphs (auto) Absolute Monos (auto) Lymphocytes % Monocytes % Eosinophils % Basophils % Absolute Granulocytes Basophils # Sodium Potassium Chloride Carbon Dioxide Anion Gap BUN Creatinine Estimated GFR Glucose Lactic Acid 1.6 Calcium Total Bilirubin AST ALT Alkaline Phosphatase Serum Total Protein Albumin Amylase Lipase Serum , Qual Urine Color YELLOW Urine Appearance CLEAR Urine pH 7.0 Ur Specific [place] 1.018 Urine Protein NEGATIVE Urine Ketones NEGATIVE Urine Blood NEGATIVE Urine Nitrite NEGATIVE Urine Bilirubin NEGATIVE Urine Urobilinogen NEGATIVE Ur Leukocyte Esterase NEGATIVE Urine WBC (Auto) 0-2 Urine RBC (Auto) 0-2 U Epithel Cells (Auto) RARE Urine Bacteria (Auto) RARE Urine Mucus (Auto) SLIGHT Urine Culture Reflexed NO Urine Glucose NEGATIVE C. difficile Screen NEGATIVE C.difficile 027-NAP1-B1 PRESUMPTIVE NEGATIVE Influenza Type A Ag Influenza Type B Ag RSV (PCR) 01/02/20 01/02/20 10:00 10:00 WBC 12.6 H RBC 3.72 L Hgb 12.0 Hct 36.5 MCV 98.1 MCH 32.3 H MCHC 32.9 RDW 13.3 Plt Count 251 MPV 8.7 Gran % 93.5 H Eos # (Auto) 0 Absolute Lymphs (auto) 0.29 L Absolute Monos (auto) 0.52 Lymphocytes % 2.3 L Monocytes % 4.1 Eosinophils % 0.0 Basophils % 0.1 Absolute Granulocytes 11.78 H Basophils # 0.01 Sodium 137 Potassium 3.5 Chloride 107 Carbon Dioxide 24 Anion Gap 8.6 BUN 15 Creatinine 0.45 L Estimated GFR > 60.0 Glucose 105 Lactic Acid Calcium 7.8 L D Total Bilirubin 0.60 AST 101 H ALT 124 H Alkaline Phosphatase 38 Serum Total Protein 6.0 L Albumin 3.4 L Amylase Lipase Serum , Qual Urine Color Urine Appearance Urine pH Ur Specific [place] Urine Protein Urine Ketones Urine Blood Urine Nitrite Urine Bilirubin Urine Urobilinogen Ur Leukocyte Esterase Urine WBC (Auto) Urine RBC (Auto) U Epithel Cells (Auto) Urine Bacteria (Auto) Urine Mucus (Auto) Urine Culture Reflexed Urine Glucose C. difficile Screen C.difficile 027-NAP1-B1 Influenza Type A Ag Influenza Type B Ag RSV (PCR) Code(s): R10.9 - UNSPECIFIED ABDOMINAL PAIN; R11.10 - VOMITING, UNSPECIFIED; R19.7 - DIARRHEA, UNSPECIFIED (2) Hematuria Current Visit: Yes Status: Acute Code(s): R31.9 - HEMATURIA, UNSPECIFIED (3) Hypokalemia Current Visit: Yes Status: Acute Code(s): E87.6 - HYPOKALEMIA
[2020-01-02] MEDS: THERAGRAN MULTIVITAMIN PO SCH (13:26)
[2020-01-02] MEDS: Toprol Xl 50 MG PO SCH (13:26)
[2020-01-02] MEDS: VITAMIN D PO SCH (13:27)
[2020-01-02] MEDS: Protonix 40MG Tablet PO SCH (13:27)
[2020-01-02] MEDS ORDERED: MEDICATION INTERVENTION MC SCH (13:45)
[2020-01-02 14:48] LABS: Slide Review 1 YES
[2020-01-02] MEDS ORDERED: PULMICORT 0.5 MG/2 ML RESPULES IH ONE (16:54)
[2020-01-02] MEDS: PULMICORT 0.5 MG/2 ML RESPULES IH SCH (16:58)
[2020-01-02] MEDS: DILAUDID 2 MG INJECTION IV PRN (19:46)
[2020-01-02] MEDS: Acidophilus TABLET PO SCH (21:20)
[2020-01-02] MEDS ORDERED: NON-FORMULARY ITEM (Metoprolol Succinate 25 MG) PO SCH (22:00)
[2020-01-02] MEDS ORDERED: Lopressor 50 MG PO SCH (22:00)
[2020-01-02] MEDS ORDERED: NON-FORMULARY ITEM (Saccharomyces Boulardii [Florastor] 250 MG) PO SCH (22:00)
[2020-01-02] MEDS: Lomotil PO PRN (23:46)
[2020-01-03] MEDS: Lactated Ringers 1,000 ML IV SCH ×3 (00:52→12:04)
[2020-01-03] MEDS: DILAUDID 2 MG INJECTION IV PRN (04:21)
[2020-01-03 04:55] LABS: BASOPHIL % 0.1 % (0.0-0.4); Basophil (Absolute #) 0.01 (0-0.4); Eosinophil % 0.2 % (0.00-5.0); Eosinophil (Absolute #) 0.02 (0-0.5); Hematocrit 34.5 % (35-47); Hemoglobin 11.4 gm/dl (12.0-16.0); Lymphocyte (Absolute #) 1.04 (1.0-4.6); Lymphocytes % 11.4 % (24.0-44.0); Mean Cell Volume 99.1 fl (78-100); Mean Corpuscular Hemoglobin 32.8 pg (26-32); Mean Platelet Volume 8.7 fl (7.5-11.0); Monocyte (Absolute #) 0.79 (0.0-1.3); Monocytes % 8.6 % (0.0-12.0); Neutrophil % 79.7 % (36.0-66.0); Platelet Count 213 K/mm3 (150-450); Red Blood Count 3.48 M/mm3 (4.1-5.4); Red Cell Distribution Width 13.3 % (11.5-14.0); White Blood Count 9.2 K/mm3 (4.0-10.5)
[2020-01-03 05:09] LABS: ALKALINE PHOSPHATASE 39 U/L (38-126); ANION GAP 7.7 MEQ/L (5-15); BLOOD UREA NITROGEN 7 mg/dL (7-17); CHLORIDE 104 mmol/L (98-107); Calcium 8.1 mg/dL (8.4-10.2); Carbon Dioxide 26 mmol/L (22-30); Creatinine 1 0.53 mg/dL (0.52-1.04); Glucose 77 mg/dL (74-106); Potassium 3.2 mmol/L (3.5-5.1); SGOT/AST 52 U/L (14-36); SGPT/ALT 85 U/L (0-35); SODIUM 135 mmol/L (137-145); Total Protein 5.5 g/dL (6.3-8.2)
[2020-01-03] MEDS: PULMICORT 0.5 MG/2 ML RESPULES IH SCH (06:42)
[2020-01-03] MEDS: Protonix 40MG Tablet PO SCH (08:53)
[2020-01-03] MEDS: VITAMIN D PO SCH (08:53)
[2020-01-03] MEDS: THERAGRAN MULTIVITAMIN PO SCH (08:54)
[2020-01-03] MEDS: Acidophilus TABLET PO SCH (08:54)
[2020-01-03] MEDS: Toprol Xl 50 MG PO SCH (08:54)
[2020-01-03] MEDS ORDERED: NON-FORMULARY ITEM (Cholecalciferol (Vitamin D3) [Vitamin D3] 5,000 UNIT) PO SCH (10:00)
[2020-01-03] MEDS ORDERED: NON-FORMULARY ITEM (Dexlansoprazole [Dexilant] 60 MG) PO SCH (10:00)
[2020-01-03] MEDS ORDERED: [UNRECOGNIZED DRUG - OTHER] PO SCH (10:00)
[2020-01-03] MEDS ORDERED: Pepcid 20 MG PO SCH (10:00)
[2020-01-03] MEDS ORDERED: NON-FORMULARY ITEM (Multivitamin [Multivitamins] 1 EACH) PO SCH (10:00)
--- NOTE | 2020-01-03 10:16 | PCM.DS ---
Discharge Summary Date of Admission: 01/02/20 03:55 Admitting Physician: JULIO CESAR TRIVEDI Primary Care Provider: JULIO CESAR TRIVEDI Allergies Allergies cisatracurium besylate [From Nimbex] Allergy (Verified 01/02/20 05:28) ondansetron HCl [From Zofran (as hydrochloride)] Allergy (Verified 01/02/20 05: 28) prochlorperazine edisylate [From Compazine] Allergy (Verified 01/02/20 05:28) prochlorperazine maleate [From Compazine] Allergy (Verified 01/02/20 05:28) Sulfa (Sulfonamide Antibiotics) Allergy (Verified 01/02/20 05:28) IV dye Allergy (Uncoded 02/24/15 11:36) Hospital Summary - Hospital Course Hospital Course: Last Vital Signs Temp 98.3 F 01/03/20 07:18 Pulse 102 H 01/03/20 07:18 Resp 16 01/03/20 07:18 BP 166/55 01/03/20 07:18 Pulse Ox 94 L 01/03/20 07:18 Allergies cisatracurium besylate [From Nimbex] Allergy (Verified 01/02/20 05:28) ondansetron HCl [From Zofran (as hydrochloride)] Allergy (Verified 01/02/20 05: 28) prochlorperazine edisylate [From Compazine] Allergy (Verified 01/02/20 05:28) prochlorperazine maleate [From Compazine] Allergy (Verified 01/02/20 05:28) Sulfa (Sulfonamide Antibiotics) Allergy (Verified 01/02/20 05:28) IV dye Allergy (Uncoded 02/24/15 11:36) Active Medications Acetaminophen (Feverall 650 Mg) 650 mg NM Q4H PRN PRN PRN Reason: temp greater than 101 Stop: 02/01/20 05:29 Budesonide (Pulmicort 0.5 Mg/2 Ml Respules) 0.5 mg IH BIDRT [facility] Stop: 02/01/20 18:59 Last Admin: 01/03/20 06:42 Dose: 0.5 mg Cholecalciferol (Vitamin D) 5,000 unit PO DAILY [facility] Stop: 02/01/20 12:59 Last Admin: 01/03/20 08:53 Dose: 5,000 unit Diphenoxylate HCl/Atropine (Lomotil) 1 tablet PO QID PRN PRN PRN Reason: DIARRHEA Stop: 02/01/20 13:51 Last Admin: 01/02/20 23:46 Dose: 1 tablet Famotidine (Pepcid 20 Mg) 20 mg PO DAILY [facility] Stop: 02/02/20 09:59 Last Admin: 01/03/20 08:54 Dose: 20 mg Hydromorphone HCl (Dilaudid 2 Mg Injection) 0.5 mg IV Q3H PRN PRN PRN Reason: PAIN Stop: 01/07/20 05:25 Last Admin: 01/03/20 04:21 Dose: 0.5 mg Lactated Ringer's (Lactated Ringers) 1,000 mls @ 200 mls/hr IV .Q5H [facility] Stop: 02/01/20 05:29 Last Admin: 01/03/20 05:39 Dose: 200 mls/hr Lactobacillus Acidophilus (Acidophilus Tablet) 1 tab PO BID [facility] Stop: 02/01/20 21:59 Last Admin: 01/03/20 08:54 Dose: 1 tab Metoprolol Succinate (Toprol Xl 50 Mg) 50 mg PO DAILY [facility] Stop: 02/01/20 12:59 Last Admin: 01/03/20 08:54 Dose: 50 mg Metoprolol Tartrate (Lopressor 50 Mg) 25 mg PO HS [facility] Stop: 02/01/20 21:59 Last Admin: 01/02/20 21:19 Dose: 25 mg Miscellaneous Information (Medication Intervention) 0 each MC .RN TO CHECK WITH PT [facility] Stop: 02/01/20 13:44 Multivitamins Therapeutic (Theragran Multivitamin) 1 tab PO DAILY [facility] Stop: 02/01/20 12:59 Last Admin: 01/03/20 08:54 Dose: 1 tab Pantoprazole Sodium (Protonix 40mg Tablet) 40 mg PO DAILY [facility] Stop: 02/01/20 12:59 Last Admin: 01/03/20 08:53 Dose: 40 mg Promethazine HCl (Phenergan 25 Mg Inj) 50 mg IM Q4H PRN PRN PRN Reason: NAUSEA Stop: 02/01/20 05:27 Last Admin: 01/02/20 23:38 Dose: 50 mg Intake & Output 01/02/20 01/03/20 11:59 11:59 Intake Total 0 5917 Output Total 425 Balance -425 5917 Weight 67.6 kg 67.5 kg Orders 01/02/20 12:39 Discontinue Telemetry ROUTINE 01/02/20 13:00 Cholecalciferol (Vitamin D3) [Vitamin D] 5,000 unit PO DAILY Metoprolol Succinate 50 mg [Toprol Xl 50 MG] 50 mg PO DAILY Multivitamins,Therapeutic Tab* [Theragran Multivitamin] 1 tab PO DAILY PANTOPRAZOLE 40 mg Tablet [Protonix 40MG Tablet] 40 mg PO DAILY 01/02/20 13:45 Medication Intervention 0 each MC .RN TO CHECK WITH PT 01/02/20 13:52 Diphenoxylate HCl/Atropine [Lomotil] 1 tablet PO QID PRN PRN 01/02/20 14:17 Pulse Oximetry .spot check Respiratory Therapy Assessment DAILY 01/02/20 19:00 Budesonide 0.5 mg/2 ml [Pulmicort 0.5 mg/2 ml Respules] 0.5 mg IH BIDRT 01/02/20 22:00 Lactobacillus Acidophilus [Acidophilus TABLET] 1 tab PO BID Metoprolol Tartrate 50 mg [Lopressor 50 MG] 25 mg PO HS 01/03/20 10:00 Famotidine 20 mg [Pepcid 20 MG] 20 mg PO DAILY 01/03/20 Breakfast [place] Diet Lab Tests 01/02/20 01/02/20 01/03/20 10:00 10:00 04:35 WBC 12.6 H 9.2 RBC 3.72 L 3.48 L Hgb 12.0 11.4 L Hct 36.5 34.5 L MCV 98.1 99.1 MCH 32.3 H 32.8 H MCHC 32.9 33.0 RDW 13.3 13.3 Plt Count 251 213 MPV 8.7 8.7 Gran % 93.5 H 79.7 H Eos # (Auto) 0 0.02 Absolute Lymphs (auto) 0.29 L 1.04 Absolute Monos (auto) 0.52 0.79 Lymphocytes % 2.3 L 11.4 L Monocytes % 4.1 8.6 Eosinophils % 0.0 0.2 Basophils % 0.1 0.1 Absolute Granulocytes 11.78 H 7.30 H Basophils # 0.01 0.01 Sodium 137 Potassium 3.5 Chloride 107 Carbon Dioxide 24 Anion Gap 8.6 BUN 15 Creatinine 0.45 L Estimated GFR > 60.0 Glucose 105 Calcium 7.8 L D Total Bilirubin 0.60 AST 101 H ALT 124 H Alkaline Phosphatase 38 Serum Total Protein 6.0 L Albumin 3.4 L Slides for Path Review YES 01/03/20 04:35 WBC RBC Hgb Hct MCV MCH MCHC RDW Plt Count MPV Gran % Eos # (Auto) Absolute Lymphs (auto) Absolute Monos (auto) Lymphocytes % Monocytes % Eosinophils % Basophils % Absolute Granulocytes Basophils # Sodium 135 L Potassium 3.2 L Chloride 104 Carbon Dioxide 26 Anion Gap 7.7 BUN 7 Creatinine 0.53 Estimated GFR > 60.0 Glucose 77 Calcium 8.1 L Total Bilirubin 0.60 AST 52 H ALT 85 H Alkaline Phosphatase 39 Serum Total Protein 5.5 L Albumin 3.0 L Slides for Path Review Microbiology 01/02/20 00:59 Clean Catch Midstream Urine Culture - Preliminary GRAM POSITIVE ID AND SENSITIVITY PENDING Chief Complaint Diagnosis Intractable Vomiting for 1 days Allergies Allergy/AdvReac Type Severity Reaction Status Date / Time cisatracurium besylate Allergy Verified 01/02/20 05:28 [From Nimbex] ondansetron HCl Allergy Verified 01/02/20 05:28 [From Zofran (as hydrochloride)] prochlorperazine edisylate Allergy Verified 01/02/20 05:28 [From Compazine] prochlorperazine maleate Allergy Verified 01/02/20 05:28 [From Compazine] Sulfa (Sulfonamide Allergy Verified 01/02/20 05:28 Antibiotics) IV dye Allergy Uncoded 02/24/15 11:36 Vital Signs (Last 24 hours) Temp Pulse Resp BP Pulse Ox 01/03/20 07:18 98.3 F 102 H 16 166/55 94 L 01/03/20 06:44 102 H 16 94 L 01/03/20 04:20 18 02/18/20 04:00 99 F 101 H 18 105/60 97 01/03/20 00:00 98.7 F 101 H 18 101/54 95 01/02/20 23:50 16 01/02/20 20:00 98.5 F 106 H 16 100/58 96 01/02/20 19:51 16 01/02/20 16:59 104 H 14 94 L 01/02/20 14:18 99 H 16 94 L 01/02/20 11:39 98.3 F 97 H 16 102/54 96 Home Medications Medication Instructions Recorded Confirmed Last Taken Type Cholecalciferol (Vitamin D3) 5,000 unit PO DAILY 01/02/20 01/02/20 01/01/20 History [Vitamin D3] Cranberry Conc/C/Bacill Coag [Azo 2 each PO DAILY 01/02/20 01/02/20 01/01/20 History Cranberry Tablet] Dexlansoprazole [Dexilant] 60 mg PO DAILY 01/02/20 01/02/20 01/01/20 History Famotidine 20 mg [Pepcid 20 20 mg PO DAILY 01/02/20 01/02/20 01/01/20 History MG] Metoprolol Succinate 25 mg PO HS 01/02/20 01/02/20 01/01/20 History Multivitamin [Multivitamins] 1 each PO DAILY 01/02/20 01/02/20 01/01/20 History Saccharomyces Boulardii [Florastor] 250 mg PO BID 01/02/20 01/02/20 01/01/20 History Current Medications Generic Name Dose Route Start Last Admin Trade Name Freq PRN Reason Stop Dose Admin Acetaminophen 650 mg 01/02/20 05:30 Feverall 650 Mg NM 02/01/20 05:29 Q4H PRN PRN temp greater than 101 Budesonide 0.5 mg 01/02/20 19:00 01/03/20 06:42 Pulmicort 0.5 Mg/2 Ml Respules IH 02/01/20 18:59 0.5 mg BIDRT JOSIAH Administration Cholecalciferol 5,000 unit 01/02/20 13:00 01/03/20 08:53 Vitamin D PO 02/01/20 12:59 5,000 unit DAILY JOSIAH Administration Diphenoxylate HCl/Atropine 1 tablet 01/02/20 13:52 01/02/20 23:46 Lomotil PO 02/01/20 13:51 1 tablet QID PRN PRN Administration DIARRHEA Famotidine 20 mg 01/03/20 10:00 01/03/20 08:54 Pepcid 20 Mg PO 02/02/20 09:59 20 mg DAILY JOSIAH Administration Hydromorphone HCl 0.5 mg 01/02/20 05:26 01/03/20 04:21 Dilaudid 2 Mg Injection IV 01/07/20 05:25 0.5 mg Q3H PRN PRN Administration PAIN Lactated Ringer's 1,000 mls @ 200 mls/hr 01/02/20 05:30 01/03/20 05:39 Lactated Ringers IV 02/01/20 05:29 200 mls/hr .Q5H JOSIAH Administration Lactobacillus Acidophilus 1 tab 01/02/20 22:00 01/03/20 08:54 Acidophilus Tablet PO 02/01/20 21:59 1 tab BID JOSIAH Administration Metoprolol Succinate 50 mg 01/02/20 13:00 01/03/20 08:54 Toprol Xl 50 Mg PO 02/01/20 12:59 50 mg DAILY JOSIAH Administration Metoprolol Tartrate 25 mg 01/02/20 22:00 01/02/20 21:19 Lopressor 50 Mg PO 02/01/20 21:59 25 mg HS JOSIAH Administration Miscellaneous Information 0 each 01/02/20 13:45 Medication Intervention MC 02/01/20 13:44 .RN TO CHECK WITH PT [facility] Multivitamins Therapeutic 1 tab 01/02/20 13:00 01/03/20 08:54 Theragran Multivitamin PO 02/01/20 12:59 1 tab DAILY JOSIAH Administration Pantoprazole Sodium 40 mg 01/02/20 13:00 01/03/20 08:53 Protonix 40mg Tablet PO 02/01/20 12:59 40 mg DAILY JOSIAH Administration Promethazine HCl 50 mg 01/02/20 05:28 01/02/20 23:38 Phenergan 25 Mg Inj IM 02/01/20 05:27 50 mg Q4H PRN PRN Administration NAUSEA Discontinued Medications Generic Name Dose Route Start Last Admin Trade Name Freq PRN Reason Stop Dose Admin Budesonide Confirm 01/02/20 16:54 Pulmicort 0.5 Mg/2 Ml Respules Administered 01/02/20 16:55 Dose 0.5 mg IH .STK-MED ONE Famotidine 20 mg 01/02/20 17:00 Pepcid 20 Mg Vial IV 02/01/20 16:59 Q12H JOSIAH Famotidine 20 mg 01/02/20 07:00 01/02/20 08:06 Pepcid 20 Mg Vial IV 02/01/20 06:59 Not Given Q12HT JOSIAH Famotidine 20 mg 01/02/20 22:00 Pepcid 20 Mg Vial IV 02/01/20 21:59 Q12HT JOSIAH Famotidine 20 mg 01/02/20 05:30 Pepcid 20 Mg Vial IV 01/02/20 05:31 .STK-MED ONE Hydromorphone HCl Confirm 01/02/20 03:18 Hydromorphone 1 Mg/Ml Ampule Administered 01/02/20 03:19 Dose 1 mg .ROUTE .STK-MED ONE Sodium Chloride 1,000 mls @ 999 mls/hr 01/02/20 00:32 01/02/20 01:06 Sodium Chloride 0.9% 1000 Ml IV 01/02/20 01:32 999 mls/hr .Q1H1M STA Administration Sodium Chloride Confirm 01/02/20 01:00 Sodium Chloride 0.9% 1000 Ml Administered 01/02/20 01:01 Dose 1,000 mls @ ud .ROUTE .STK-MED ONE Potassium Chloride 20 meq in 100 mls @ 50 mls/hr 01/02/20 01:34 01/02/20 01: 39 Potassium Chloride 20 Meq In Water 100ml IV 01/02/20 03:33 50 mls/hr STAT ONE Administration Potassium Chloride Confirm 01/02/20 01:37 Potassium Chloride 20 Meq In Water 100ml Administered 01/02/20 01:38 Dose 100 mls @ ud IV .STK-MED ONE Sodium Chloride 1,000 mls @ 999 mls/hr 01/02/20 01:40 Sodium Chloride 0.9% 1000 Ml IV 01/02/20 02:40 .Q1H1M STA Sodium Chloride Confirm 01/02/20 02:22 Sodium Chloride 0.9% 1000 Ml Administered 01/02/20 02:23 Dose 1,000 mls @ ud .ROUTE .STK-MED ONE Potassium Bicarbonate 25 meq 01/02/20 01:34 01/02/20 05:19 K-Lyte 25 Meq PO 01/02/20 01:35 Not Given STAT ONE Potassium Bicarbonate Confirm 01/02/20 01:37 K-Lyte 25 Meq Administered 01/02/20 01:38 Dose 25 meq .ROUTE .STK-MED ONE Promethazine HCl 50 mg 01/02/20 00:32 01/02/20 01:06 Phenergan 25 Mg Inj IM 01/02/20 00:33 50 mg STAT ONE Administration Promethazine HCl Confirm 01/02/20 01:00 Phenergan 25 Mg Inj Administered 01/02/20 01:01 Dose 50 mg .ROUTE .STK-MED ONE Intake & Output (Last 24 hours) 12/31/19 01/01/20 01/02/20 01/03/20 11:59 11:59 11:59 11:59 Intake Total 0 5917 Output Total 425 Balance -425 5917 Weight 67.6 kg 67.5 kg Microbiology Results (Last 24 hours) 01/02/20 00:59 Clean Catch Midstream Urine Culture - Preliminary GRAM POSITIVE ID AND SENSITIVITY PENDING Laboratory Results (Last 24 hours) 01/03/20 01/03/20 01/02/20 04:35 04:35 10:00 WBC 9.2 RBC 3.48 L Hgb 11.4 L Hct 34.5 L MCV 99.1 MCH 32.8 H MCHC 33.0 RDW 13.3 Plt Count 213 MPV 8.7 Gran % 79.7 H Eos # (Auto) 0.02 Absolute Lymphs (auto) 1.04 Absolute Monos (auto) 0.79 Lymphocytes % 11.4 L Monocytes % 8.6 Eosinophils % 0.2 Basophils % 0.1 Absolute Granulocytes 7.30 H Basophils # 0.01 Sodium 135 L 137 Potassium 3.2 L 3.5 Chloride 104 107 Carbon Dioxide 26 24 Anion Gap 7.7 8.6 BUN 7 15 Creatinine 0.53 0.45 L Estimated GFR > 60.0 > 60.0 Glucose 77 105 Calcium 8.1 L 7.8 L D Total Bilirubin 0.60 0.60 AST 52 H 101 H ALT 85 H 124 H Alkaline Phosphatase 39 38 Serum Total Protein 5.5 L 6.0 L Albumin 3.0 L 3.4 L Slides for Path Review 01/02/20 10:00 WBC 12.6 H RBC 3.72 L Hgb 12.0 Hct 36.5 MCV 98.1 MCH 32.3 H MCHC 32.9 RDW 13.3 Plt Count 251 MPV 8.7 Gran % 93.5 H Eos # (Auto) 0 Absolute Lymphs (auto) 0.29 L Absolute Monos (auto) 0.52 Lymphocytes % 2.3 L Monocytes % 4.1 Eosinophils % 0.0 Basophils % 0.1 Absolute Granulocytes 11.78 H Basophils # 0.01 Sodium Potassium Chloride Carbon Dioxide Anion Gap BUN Creatinine Estimated GFR Glucose Calcium Total Bilirubin AST ALT Alkaline Phosphatase Serum Total Protein Albumin Slides for Path Review YES Orders (Last 24 hours) Category Date Time Status Discontinue Telemetry ROUTINE Care 01/02/20 12:39 Active [place] Diet Diet 01/03/20 Breakfast Active CBC W DIFF AM.LAB Lab 01/02/20 10:00 Completed CBC W DIFF AM.LAB Lab 01/03/20 04:35 Completed CMP AM.LAB Lab 01/02/20 10:00 Completed CMP AM.LAB Lab 01/03/20 04:35 Completed Budesonide 0.5 mg/2 ml [Pulmicort 0.5 mg/2 ml Med 01/02/20 16:54 Discontinued Respules] 0.5 mg IH .STK-MED ONE Budesonide 0.5 mg/2 ml [Pulmicort 0.5 mg/2 ml Med 01/02/20 19:00 Active Respules] 0.5 mg IH BIDRT Cholecalciferol (Vitamin D3) [Vitamin D] Med 01/02/20 13:00 Active 5,000 unit PO DAILY Diphenoxylate HCl/Atropine [Lomotil] Med 01/02/20 13:52 Active 1 tablet PO QID PRN PRN Famotidine 20 mg Vial [Pepcid 20 MG VIAL] Med 01/02/20 17:00 Discontinued 20 mg IV Q12H Famotidine 20 mg Vial [Pepcid 20 MG VIAL] Med 01/02/20 22:00 Discontinued 20 mg IV Q12HT Famotidine 20 mg [Pepcid 20 MG] Med 01/03/20 10:00 Active 20 mg PO DAILY Lactobacillus Acidophilus [Acidophilus TABLET] Med 01/02/20 22:00 Active 1 tab PO BID Medication Intervention Med 01/02/20 13:45 Active 0 each MC .RN TO CHECK WITH PT Metoprolol Succinate 50 mg [Toprol Xl 50 MG] Med 01/02/20 13:00 Active 50 mg PO DAILY Metoprolol Tartrate 50 mg [Lopressor 50 MG] Med 01/02/20 22:00 Active 25 mg PO HS Multivitamins,Therapeutic Tab* [Theragran Multivitamin* Med 01/02/20 13:00 Active ] 1 tab PO DAILY PANTOPRAZOLE 40 mg Tablet [Protonix 40MG Tablet] Med 01/02/20 13:00 Active 40 mg PO DAILY Pulse Oximetry .spot check RT 01/02/20 14:17 Active Respiratory Therapy Assessment DAILY RT 01/02/20 14:17 Active Patient Care Notes (Last 24 hours) 01/03/20 10:10 Case Management Note by aNila Mascorro S/W PATIENT- SHE CONTINUES TO DENY ANY NEEDS REGARDING DC AT THIS TIME Initialized on 01/03/20 10:10 - END OF NOTE 01/02/20 12:40 Case Management Note by Naila Mascorro DR. ROUNDED ON PATIENT- PLANS TO KEEP PATIENT FOR ANOTHER DAY. DC TELE AND CONT. PULSE OX Initialized on 01/02/20 12:40 - END OF NOTE - Vitals & Intake/Output Vital Signs: Vital Signs Temperature 98.3 F 01/03/20 07:18 Pulse Rate 102 H 01/03/20 07:18 Respiratory Rate 16 01/03/20 07:18 Blood Pressure 166/55 01/03/20 07:18 O2 Sat by Pulse Oximetry 94 L 01/03/20 07:18 Intake & Output: Intake & Output 12/31/19 01/01/20 01/02/20 02/18/20 11:59 11:59 11:59 11:59 Intake Total 0 5917 Output Total 425 Balance -425 5917 Weight 67.6 kg 67.5 kg - Lab Result Diagrams: 01/03/20 04:35 01/03/20 04:35 Lab Results-Last 24 Hrs: Lab Results-Last 24 Hours 01/02/20 01/02/20 01/03/20 Range/Units 10:00 10:00 04:35 WBC 12.6 H 9.2 (4.0-10.5) K/mm3 RBC 3.72 L 3.48 L (4.1-5.4) M/mm3 Hgb 12.0 11.4 L (12.0-16.0) gm/dl Hct 36.5 34.5 L (35-47) % MCV 98.1 99.1 (78-100) fl MCH 32.3 H 32.8 H (26-32) pg MCHC 32.9 33.0 (32-36) g/dl RDW 13.3 13.3 (11.5-14.0) % Plt Count 251 213 (150-450) K/mm3 MPV 8.7 8.7 (7.5-11.0) fl Gran % 93.5 H 79.7 H (36.0-66.0) % Eos # (Auto) 0 0.02 (0-0.5) Absolute Lymphs (auto) 0.29 L 1.04 (1.0-4.6) Absolute Monos (auto) 0.52 0.79 (0.0-1.3) Lymphocytes % 2.3 L 11.4 L (24.0-44.0) % Monocytes % 4.1 8.6 (0.0-12.0) % Eosinophils % 0.0 0.2 (0.00-5.0) % Basophils % 0.1 0.1 (0.0-0.4) % Absolute Granulocytes 11.78 H 7.30 H (1.4-6.9) Basophils # 0.01 0.01 (0-0.4) Sodium 137 (137-145) mmol/L Potassium 3.5 (3.5-5.1) mmol/L Chloride 107 (98-107) mmol/L Carbon Dioxide 24 (22-30) mmol/L Anion Gap 8.6 (5-15) MEQ/L BUN 15 (7-17) mg/dL Creatinine 0.45 L (0.52-1.04) mg/dL Estimated GFR > 60.0 ML/MIN Glucose 105 (74-106) mg/dL Calcium 7.8 L D (8.4-10.2) mg/dL Total Bilirubin 0.60 (0.2-1.3) mg/dL AST 101 H (14-36) U/L ALT 124 H (0-35) U/L Alkaline Phosphatase 38 (38-126) U/L Serum Total Protein 6.0 L (6.3-8.2) g/dL Albumin 3.4 L (3.5-5.0) g/dL Slides for Path Review YES 01/03/20 Range/Units 04:35 WBC (4.0-10.5) K/mm3 RBC (4.1-5.4) M/mm3 Hgb (12.0-16.0) gm/dl Hct (35-47) % MCV (78-100) fl MCH (26-32) pg MCHC (32-36) g/dl RDW (11.5-14.0) % Plt Count (150-450) K/mm3 MPV (7.5-11.0) fl Gran % (36.0-66.0) % Eos # (Auto) (0-0.5) Absolute Lymphs (auto) (1.0-4.6) Absolute Monos (auto) (0.0-1.3) Lymphocytes % (24.0-44.0) % Monocytes % (0.0-12.0) % Eosinophils % (0.00-5.0) % Basophils % (0.0-0.4) % Absolute Granulocytes (1.4-6.9) Basophils # (0-0.4) Sodium 135 L (137-145) mmol/L Potassium 3.2 L (3.5-5.1) mmol/L Chloride 104 (98-107) mmol/L Carbon Dioxide 26 (22-30) mmol/L Anion Gap 7.7 (5-15) MEQ/L BUN 7 (7-17) mg/dL Creatinine 0.53 (0.52-1.04) mg/dL Estimated GFR > 60.0 ML/MIN Glucose 77 (74-106) mg/dL Calcium 8.1 L (8.4-10.2) mg/dL Total Bilirubin 0.60 (0.2-1.3) mg/dL AST 52 H (14-36) U/L ALT 85 H (0-35) U/L Alkaline Phosphatase 39 (38-126) U/L Serum Total Protein 5.5 L (6.3-8.2) g/dL Albumin 3.0 L (3.5-5.0) g/dL Slides for Path Review Micro Results-Entire Visit: Microbiology 01/02/20 00:59 Urine Culture - Preliminary Clean Catch Midstream GRAM POSITIVE ID AND SENSITIVITY PENDING - Radiology Exams Ordered Rad Exams-Entire Visit: Radiology Procedures Category Date Time Status ABDOMEN AND PELVIS W/0 CONTRAS [CT] Stat Exams 01/02/20 00:44 Completed - Procedures and Test Procedures and Tests throughout Hospitalization: Therapy Orders & Screens 01/02/20 14:17 Respiratory Therapy Assessment DAILY Comment: Diagnosis: Intractable Vomiting for 1 days Discharge Exam General Appearance: no apparent distress, alert Neurologic Exam: alert, oriented x 3, cooperative, normal mood/affect, nml cerebellar function, sensation nml, No motor deficits Eye Exam: PERRL, EOMI, eyes nml inspection Ears, Nose, Throat Exam: normal ENT inspection, pharynx normal, moist mucous membranes Neck Exam: normal inspection, non-tender, supple, full range of motion Respiratory Exam: normal breath sounds, lungs clear, No respiratory distress Cardiovascular Exam: regular rate/rhythm, normal heart sounds Gastrointestinal/Abdomen Exam: soft, No tenderness, No mass Pelvic Exam: deferred Rectal Exam: deferred Back Exam: normal inspection, normal range of motion, No CVA tenderness, No vertebral tenderness Extremity Exam: normal inspection, normal range of motion Skin Exam: normal color, warm, dry Final Diagnosis/Problem List - Final Discharge Diagnosis/Problem (1) Abdominal pain, vomiting, and diarrhea Current Visit: Yes Status: Acute Code(s): R10.9 - UNSPECIFIED ABDOMINAL PAIN ; R11.10 - VOMITING, UNSPECIFIED; R19.7 - DIARRHEA, UNSPECIFIED (2) Hematuria Current Visit: Yes Status: Acute Code(s): R31.9 - HEMATURIA, UNSPECIFIED (3) Hypokalemia Current Visit: Yes Status: Acute Code(s): E87.6 - HYPOKALEMIA - Discharge Discharge Date: 01/03/20 Disposition: Home, Self-Care Condition: Stable Prescriptions: Continue Metoprolol Succinate 50 mg [Toprol Xl 50 MG] 50 mg PO DAILY Budesonide [Pulmicort] 1 puff IH BID Saccharomyces Boulardii [Florastor] 250 mg PO BID Cholecalciferol (Vitamin D3) [Vitamin D3] 5,000 unit PO DAILY Multivitamin [Multivitamins] 1 each PO DAILY Famotidine 20 mg [Pepcid 20 MG] 20 mg PO DAILY Dexlansoprazole [Dexilant] 60 mg PO DAILY Cranberry Conc/C/Bacill Coag [Azo Cranberry Tablet] 2 each PO DAILY Metoprolol Succinate 25 mg PO HS Follow up with: JULIO CESAR TRIVEDI MD [Primary Care Provider] - 1 Week
[2020-01-03] MEDS: Lomotil PO PRN (11:00)
[2020-01-03 11:27] VITALS: BP 98/54; PULSE 97; O2SAT 95
== END 2020-01-03 13:25 | disposition home or self-care (01) ==
LOC: ED 00:15 → MED SURG 03:55
PROVIDERS: ADMIT General Practice; ATTEND General Practice
DX: R10.9 Unspecified abdominal pain (principal); R11.10 Vomiting, unspecified; R19.7 Diarrhea, unspecified; E87.6 Hypokalemia; R94.5 Abnormal results of liver function studies; R31.9 Hematuria, unspecified
CPT/HCPCS: 36000; 36415; 74176; 80053; 81001; 81025; 82150; 83605; 83690; 85025; 87077; 87086; 87186; 87493; 87631; 93268; 94640; 94760; 96360; 96365; 96372; 99285; G0378; J1170; J2550; J3480; A9270-GY

== ENCOUNTER 2024-06-21 22:41 | Emergency (ER) | payer BC ==
[2024-06-21 22:56] VITALS: PULSE 72; RESP 16; TEMP 99.3
[2024-06-21 23:54] LABS: BASOPHIL % 0.9 % (0.1-1.2); Basophil (Absolute #) 0.03 x10^3/uL (0.01-0.08); Eosinophil (Absolute #) 0 x10^3/uL (0.04-0.36); Hematocrit 39.2 % (34.1-44.9); Hemoglobin 12.8 g/dL (11.2-15.7); IMMATURE GRAN # 0.01 x10^3u/L (0.001-0.031); IMMATURE GRAN % 0.3 % (0.001-0.429); Lymphocyte (Absolute #) 1.24 x10^3/uL (1.18-3.74); Lymphocytes % 38.8 % (19.3-51.7); Mean Cell Volume 96.8 fL (79.4-94.8); Mean Corpuscular Hemoglobin 31.6 pg (25.6-32.2); Mean Corpuscular Hgb Concent. 32.7 g/dL (32.2-35.5); Mean Platelet Volume 9.1 fL (9.4-12.3); Monocyte (Absolute #) 0.52 x10^3/uL (0.24-0.86); Monocytes % 16.3 % (4.7-12.5); Neutrophil % 43.7 % (34.0-71.1); Platelet Count 192 x10^3/uL (182-369); Red Blood Count 4.05 x10^6/uL (3.93-5.22); Red Cell Distribution Width 12.8 % (11.7-14.4); White Blood Count 3.2 x10^3/uL (3.98-10.04)
[2024-06-21] MEDS ORDERED: Sodium Chloride 0.9% 1000 ML 1,000 ML ONE (23:58)
[2024-06-21] MEDS: Sodium Chloride 0.9% 1000 ML 1,000 ML IV STA (23:59)
[2024-06-22 00:07] LABS: ALBUMIN 4.2 g/dL (3.5-5.0); ANION GAP 12.2 MEQ/L (5-15); BILIRUBIN,TOTAL 0.3 mg/dL (0.2-1.3); Calcium 9.2 mg/dL (8.4-10.2); Creatinine 1 0.6 mg/dL (0.52-1.04); EST GLOMERULAR FILTRATION RATE 114.2 ML/MIN; MAGNESIUM 2.1 mg/dL (1.6-2.3); Potassium 3.2 mmol/L (3.5-5.1); Total Protein 7.1 g/dL (6.3-8.2)
[2024-06-22] MEDS ORDERED: Klor Con ONE (00:16)
[2024-06-22] MEDS: Klor Con PO ONE (00:17)
--- NOTE | 2024-06-22 00:19 | ERPHSYRPT ---
- History of Present Illness Time Seen by Provider: 06/22/24 00:00 Source: patient Exam Limitations: no limitations Patient Subjective Stated Complaint: I have Covid but I've had diarrhea x2 days, vomited x1 today. Triage Nursing Assessment: pt ambulated into ER without diff, spouse at bedside. Pt is alert and oriented x4. Pt c/o diarrhea x2 days, vomited x1 this evening and is Covid positive since last Thursday. Pt has had a cough but pt states, "that's improved alot". Lungs clear, heart tones reg, abd soft with active bs x4 quad, nontender. Pt was to come in outpatient tomorrow for IV fluids. Physician History: Patient was diagnosed with COVID over 1 week ago and has recently developed nausea, vomiting and diarrhea over the last 2 days. She has been unable to keep down solid or liquid during this time. She denies any blood in the vomit or diarrhea. She reports just a cramping abdominal sensation without distinct or localized abdominal pain. She denies any fevers. She has taken Phenergan and Imodium without symptom improvement. She does not report allergy to Zofran and Compazine. Timing/Duration: day(s) (2) Severity: severe Modifying Factors: Worsens With: eating Associated Symptoms: nausea, vomiting, chills, loss of appetite, No abdominal pain, No chest pain, No fever Allergies/Adverse Reactions: cisatracurium besylate [From Nimbex] Allergy (Verified 06/21/24 23:08) ondansetron HCl [From Zofran (as hydrochloride)] Allergy (Verified 06/21/24 23:08) prochlorperazine edisylate [From Compazine] Allergy (Verified 06/21/24 23:08) prochlorperazine maleate [From Compazine] Allergy (Verified 06/21/24 23:08) Sulfa (Sulfonamide Antibiotics) Allergy (Verified 06/21/24 23:08) IV dye Allergy (Uncoded 06/21/24 23:08) Home Medications: Budesonide [Pulmicort] 1 puff IH BID 02/24/15 [History] Cholecalciferol (Vitamin D3) [Vitamin D3] 5,000 unit PO DAILY 01/02/20 [History] Cranberry Conc/C/Bacill Coag [Azo Cranberry Tablet] 2 each PO DAILY 01/02/20 [History] Dexlansoprazole [Dexilant] 60 mg PO DAILY 01/02/20 [History] Multivitamin [Multivitamins] 1 each PO DAILY 01/02/20 [History] Saccharomyces Boulardii [Florastor] 250 mg PO BID 01/02/20 [History] Famotidine [Zantac-360 (Famotidine)] 1 tab PO DAILY 06/21/24 [History] Promethazine HCl 25 mg [Phenergan 25 mg] 1 tab PO DAILY PRN 06/21/24 [History] nadoloL [Nadolol] 1 tab PO DAILY 06/21/24 [History] Hx Tetanus, Diphtheria Vaccination/Date Given: (unknown) Hx Influenza Vaccination/Date Given: Yes Hx Pneumococcal Vaccination/Date Given: No Travel Risk - International Travel Have you traveled outside of the country in past 3 weeks: Yes If Yes, where;: [place] - Emerging Infectious Disease Are you exhibiting symptoms associated with any current EIDs: Yes Symptoms: Abdominal Pain, Cough: New Onset, Diarrhea, Vomitting - Review of Systems All Other Systems: Reviewed and Negative - Past Medical History Pertinent Past Medical History: Yes Neurological History: No Pertinent History ENT History: No Pertinent History Cardiac History: Other Respiratory History: Asthma Endocrine Medical History: Hypoglycemia Musculoskeletal History: No Pertinent History GI Medical History: Gallbladder Disease History: Other Psycho-Social History: No Pertinent History Female Reproductive Disorders: Endometriosis Other Medical History: heart palpitations, hormonal imbalance. - Past Surgical History Past Surgical History: Yes Neuro Surgical History: No Pertinent History Cardiac: No Pertinent History Respiratory: No Pertinent History Gastrointestinal: Cholecystectomy Musculoskeletal: Other Female Surgical History: Section Other Surgical History: scopes x2-endometriosis - Female History Hx Last Menstrual Period: 2 weeks ago Hx Now: No - Social History Smoking Status: Never smoker Exposure to second hand smoke: No Drug Use: none, marijuana Patient Lives Alone: No - Social Determinants of Health Will the patient participate in the screening: Yes Do you worry about a steady place to live?: No Do you have any problems with any of the following?: No known problems In the past 12 months,have you had to go without utilities?: No Transportation Issues: No Has anyone in your support network made you feel unsafe?: No Have you or anyone in your house had to go without enough: No - Nursing Vital Signs Nursing Vital Signs: Initial Vital Signs Temperature 99.3 F 06/21/24 22:54 Pulse Rate 72 06/21/24 22:54 Respiratory Rate 16 06/21/24 22:54 Blood Pressure 133/84 06/21/24 22:54 O2 Sat by Pulse Oximetry 98 06/21/24 22:54 Pain Scale Pain Intensity 6 - Physical Exam General Appearance: mild distress Eye Exam: eyes nml inspection Ears, Nose, Throat Exam: normal ENT inspection Neck Exam: normal inspection, supple, full range of motion Respiratory Exam: airway intact, No respiratory distress Cardiovascular Exam: capillary refill <2 sec, No edema Gastrointestinal/Abdomen Exam: soft, normal bowel sounds, No tenderness, No distention, No guarding, No rebound Neurologic Exam: alert, oriented x 3, cooperative Skin Exam: pale SpO2 Interpretation: normal SpO2: 98 O2 Delivery: Room Air - Course Nursing assessment & vital signs reviewed: Yes Ordered Tests: Active Orders 24 hr Category Date Time Status CBC W DIFF Stat Lab 06/21/24 23:51 Completed CMP Stat Lab 06/21/24 23:51 Completed MAGNESIUM Stat Lab 06/21/24 23:51 Completed UA W/RFX UR CULTURE Stat Lab 06/22/24 00:14 Ordered Medication Summary Generic Name Dose Route Start Last Admin Trade Name Freq PRN Reason Stop Dose Admin Chlorphenir/Hydrocodone Polistirex 5 ml 06/22/24 00:57 Hydrocodone/Chlorphen P-Stirex 1 Ml Debbie.Er.12h PO 07/22/24 00:56 [id number] PRN COUGH Discontinued Medications Generic Name Dose Route Start Last Admin Trade Name Freq PRN Reason Stop Dose Admin Droperidol 1.25 mg 06/21/24 23:36 06/21/24 23:59 Droperidol 5 Mg/2 Ml Vial IV 06/21/24 23:37 1.25 mg STAT ONE Administration Droperidol Confirm 06/21/24 23:58 Droperidol 5 Mg/2 Ml Vial Administered 06/21/24 23:59 Dose 5 mg .ROUTE .STK-MED ONE Sodium Chloride 1,000 mls @ 999 mls/hr 06/21/24 23:36 06/21/24 23:59 Sodium Chloride 0.9% 1000 Ml IV 06/22/24 00:36 999 mls/hr .Q1H1M STA Administration Sodium Chloride Confirm 06/21/24 23:58 Sodium Chloride 0.9% 1000 Ml Administered 06/21/24 23:59 Dose 1,000 mls @ ud .ROUTE .STK-[facility] ONE Potassium Chloride 40 meq 06/22/24 00:13 06/22/24 00:17 Potassium Chloride Tab 10 Meq Tab PO 06/22/24 00:14 40 meq STAT ONE Administration Potassium Chloride Confirm 06/22/24 00:16 Potassium Chloride Tab 10 Meq Tab Administered 06/22/24 00:17 Dose 40 meq .ROUTE .STK-MED ONE Lab/Rad Data: Laboratory Result Diagrams 06/21/24 23:51 06/21/24 23:51 Laboratory Results 06/21/24 06/21/24 Range/Units 23:51 23:51 WBC 3.2 L (3.98-10.04) x10^3/uL RBC 4.05 (3.93-5.22) x10^6/uL Hgb 12.8 (11.2-15.7) g/dL Hct 39.2 (34.1-44.9) % MCV 96.8 H (79.4-94.8) fL MCH 31.6 (25.6-32.2) pg MCHC 32.7 (32.2-35.5) g/dL RDW 12.8 (11.7-14.4) % Plt Count 192 (182-369) x10^3/uL MPV 9.1 L (9.4-12.3) fL Gran % 43.7 (34.0-71.1) % Immature Gran % (Auto) 0.3 (0.001-0.429) % Nucleat RBC Rel Count 0.0 (0.00-0.2) % Eos # (Auto) 0 L (0.04-0.36) x10^3/uL Immature Gran # (Auto) 0.01 (0.001-0.031) x10^3u/L Absolute Lymphs (auto) 1.24 (1.18-3.74) x10^3/uL Absolute Monos (auto) 0.52 (0.24-0.86) x10^3/uL Absolute Nucleated RBC 0.00 (0.00-0.012) x10^3u/L Lymphocytes % 38.8 (19.3-51.7) % Monocytes % 16.3 H (4.7-12.5) % Eosinophils % 0.0 L (0.7-5.8) % Basophils % 0.9 (0.1-1.2) % Absolute Granulocytes 1.40 L (1.56-6.13) x10^3/uL Basophils # 0.03 (0.01-0.08) x10^3/uL Sodium 135 (135-145) mmol/L Potassium 3.2 L (3.5-5.1) mmol/L Chloride 100 (98-107) mmol/L Carbon Dioxide 26 (22-30) mmol/L Anion Gap 12.2 (5-15) MEQ/L BUN 5 L (7-17) mg/dL Creatinine 0.60 (0.52-1.04) mg/dL Estimated GFR 114.2 ML/MIN Glucose 83 (74-106) mg/dL Calcium 9.2 (8.4-10.2) mg/dL Magnesium 2.1 (1.6-2.3) mg/dL Total Bilirubin 0.30 (0.2-1.3) mg/dL AST 73 H (14-36) U/L ALT 82 H (0-35) U/L Alkaline Phosphatase 51 (38-126) U/L Serum Total Protein 7.1 (6.3-8.2) g/dL Albumin 4.2 (3.5-5.0) g/dL - Progress Progress: improved Progress Note: 06/22/24 00:18 K 3.2, 40meq KCl given PO. Mild transaminitis noted on CMP. Droperidol given for N/V. NS bolus given. Counseled pt/family regarding: lab results, diagnosis, need for follow-up Medical Desision Making - Diagnostic Testing Diagnostic test were ordered, analyzed, and reviewed by me: Yes Radiological Interpretation: Interpreted by me - Risk of complications The pt has a mod risk of morbidity or mortality based on: Need for prescription drug management - Departure Departure Disposition: Home Clinical Impression: Nausea & vomiting, Diarrhea, Volume depletion, Hypokalemia, History of chronic diarrhea, Cough, COVID-19 Condition: Good Critical Care Time: No Referrals: JULIO CESAR TRIVEDI MD [Primary Care Provider] - Follow up/PCP as directed Instructions: Diarrhea and Traveler's Diarrhea, Adult (DC)
[2024-06-22] MEDS: HYDROCODONE-CHLORPHEN ER SUSP PO PRN (01:42)
[2024-06-22 02:11] VITALS: BP 123/64; O2SAT 99
[2024-06-22 04:40] LABS: Appearance Clear (Clear); Bacteria None Seen /HPF (None Seen); Bilirubin Negative (Negative); Blood Negative (Negative); Epithelial Cells None Seen /HPF (None Seen); Glucose, Urine Negative (Negative); Hyaline Casts NONE SEEN /LPF (0-2); Ketones 15 (Negative); Leukocyte Esterase Negative (Negative); Nitrite Negative (Negative); Ph 5.5 (4.6-8.0); Protein,Urine Dip Negative (Negative); RBC 0-2 /HPF (0-5); Specific Gravity <=1.005 (1.005-1.030); Urobilinogen 0.2 mg/dL (0.2); WBC 0-2 /HPF (0-5)
[2024-06-22 05:13] LABS: ADD URINE CULTURE? NO (NO)
== END 2024-06-22 02:28 | disposition home or self-care (01) ==
LOC: ED 22:41
DX: U07.1 COVID-19 (principal); R11.2 Nausea with vomiting, unspecified; R19.7 Diarrhea, unspecified; E86.9 Volume depletion, unspecified; E87.6 Hypokalemia; R05.9 Cough, unspecified; Z87.19 Personal history of other diseases of the digestive system; R10.9 Unspecified abdominal pain; Z79.899 Other long term (current) drug therapy
CPT/HCPCS: 36000; 36415; 80053; 81001; 83735; 85025; 96374; 99284; A9270-GY